=== PATIENT | male | born 1995 | race Asian ===

== ENCOUNTER 2022-01-07 08:00 | Outpatient (CLI) | payer OTHER ==
[2022-01-07 20:34] LABS: RESPIRATORY SYNCYTIAL VIRUS Negative (Negative)
== END 2022-01-07 23:59 | disposition home or self-care (01) ==
LOC: LAB.N 08:00
PROVIDERS: ATTEND Physician Assistant Medical
DX: R05.9 Cough, unspecified (principal)
CPT/HCPCS: 87280